=== PATIENT | female | born 1975 | race Caucasian/White ===

== ENCOUNTER 2016-12-03 17:50 | Emergency (ER) | payer OTHER ==
[~2016-12-03] VITALS: Ht 142.2 cm; Wt 54.5 kg
[~2016-12-03 17:50] MED LIST: AUGM875T PO; IBUP-238 PO; IBUP800 PO; METR-1 PO
[2016-12-03 17:52] VITALS: BP 162/82; PULSE 88; RESP 16; TEMP 98.2; O2SAT 99
--- NOTE | 2016-12-03 17:59 | PD ---
HPI . Left foot pain and right knee abrasion since noon Chief Complaint: Fall Time Seen by Provider: 17:59 Travel History International Travel<30 days: No Contact w/Intl Traveler<30days: No Traveled to known affect area: No History of Present Illness HPI 41-year-old female here with complaints of left foot pain and right knee abrasion since noon today. Patient was at [facility] when she was walking and accidentally twisted her ankle. She twisted awkwardly and somehow hurt her left foot and also sustained an abrasion to her right knee. She is now complaining of left foot pain on the lateral side. Pain is rated as 6/10 without any radiation. She tells me that this seems to be some tight sensation in the foot. She also complains of a right knee abrasion. She is up-to-date on her tetanus vaccine. She has no other complaints. She denies head injury or loss of consciousness. PFSH Past Medical History ?: Not LMP: 11/2016 Social History Alcohol Use: No Tobacco Use: No Substance Use: No Allergies-Medications (Allergen,Severity, Reaction): Coded Allergies: No Known Allergies (Unverified , 12/03/16) Reported Meds & Prescriptions Reported Meds & Active Scripts Active Ibuprofen 800 Mg Tab 800 Mg PO TID Review of Systems General / Constitutional: No: Fever Eyes: No: Visual changes HENT: No: Headaches Cardiovascular: No: Chest Pain or Discomfort Respiratory: No: Shortness of Breath Gastrointestinal: No: Abdominal Pain Genitourinary: No: Dysuria Musculoskeletal: Positive: Pain (left lateral foot) Skin: Positive Other (R knee abrasion ), No Rash Neurologic: No: Weakness Psychiatric: No: Depression Endocrine: No: Polydipsia Hematologic/Lymphatic: No: Easy Bruising Physical Exam Narrative GENERAL: AAO x 3, no acute distress, Well-nourished, well-developed patient. SKIN: Warm and dry. No visible rashes or bruising. HEAD: Normocephalic and atraumatic. EYES: No scleral icterus. No injection or drainage. ENT: No nasal drainage noted. Airway patent. NECK: Supple, trachea midline. No JVD. CARDIOVASCULAR: Regular rate and rhythm without murmurs, gallops, or rubs. RESPIRATORY: Breath sounds equal bilaterally. No accessory muscle use. No rhonchi or rales. GASTROINTESTINAL: Visual inspection normal EXTREMITIES: No cyanosis. left lateral foot with edema, tender to touch and decreased ROM due to pain.Toes move normally. pulses intact. BACK: Nontender without obvious deformity. No CVA tenderness. PSYCH: AAO x 3, normal affect. Data Data Last Documented VS Vital Signs Date Time Temp Pulse Resp B/P Pulse Ox O2 Delivery O2 Flow Rate FiO2 12/03/16 18:12 Room Air 12/03/16 17:52 98.2 88 16 162/82 99 Orders Foot, Complete ([id number]) (12/03/16 18:03) Shoe Post Op (12/03/16 ) [facility] Medical Decision Making Medical Screen Exam Complete: Yes Emergency Medical Condition: Yes Medical Record Reviewed: Yes Differential Diagnosis foot sprain, foot fracture, tendon injury Narrative Course 41-year-old female here with complaints of left foot pain and right knee abrasion since noon today. Patient was at [facility] when she was walking and accidentally twisted her ankle. She twisted awkwardly and somehow hurt her left foot and also sustained an abrasion to her right knee. She is now complaining of left foot pain on the lateral side. Pain is rated as 6/10 without any radiation. She tells me that this seems to be some tight sensation in the foot. She also complains of a right knee abrasion. She is up-to-date on her tetanus vaccine. She has no other complaints. She denies head injury or loss of consciousness. Patient seen and examined. She appears to have a foot sprain. I will go ahead and check an x-ray to rule out any type of bony abnormality. Her pain is tolerable at this point and she recently took two ibuprofen. Xray: tiny fracture of the base of lateral cuboid discussed with patient post op shoe and follow up with podiatry Abrasion was cleaned off and dressed appropriately. Patient verbalized understanding of instructions, questions were answered, and thanked me for their care. I advised them if their condition worsens, please return to the nearest emergency room for further care. Diagnosis Primary Impression: Foot fracture, left Qualified Code: S92.902A - Foot fracture, left, closed, initial encounter Referrals: [facility] Patient Instructions: General Instructions Additional Instructions: Rest the affected area as much as possible. Ice this area for 15-20 minutes at a time. You can do this every hour or as much as tolerated. Elevate this area. Use ibuprofen as needed for pain and inflammation. Please return to emergency department if your symptoms return or worsen. Follow up with your primary care provider. Take medications as prescribed. Please follow up with podiatry. You may need to see your primary care provider first. Med/Other Pt SpecificInfo: Prescription(s) given Scripts Ibuprofen 800 Mg Tmc607 Mg PO TID #21 TAB Prov:Kike Sullivan MD 12/03/16 Disposition: 01 DISCHARGE HOME Condition: Stable Ama Torres December 03, 2016 17:59
--- NOTE | 2016-12-03 18:30 | RADRPT ---
EXAM DATE/TIME: 12/03/2016 18:21 [place] COMPARISON: No previous studies available for comparison. INDICATIONS : Left foot pain after fall in parking lot today. MEDICAL HISTORY : None. SURGICAL HISTORY : None. ENCOUNTER: Initial ACUITY: 1 day PAIN SCORE: 10/10 LOCATION: Left lateral foot. FINDINGS: First a tiny ossific fragment adjacent to the proximal aspect of the cuboid at the calcaneocuboid asiya nt level. This could be a small chip or avulsion injury. The bony elements appear otherwise intact. M ineralization is normal. No significant articular abnormalities are evident. CONCLUSION: Tiny fracture involving the base of the lateral cuboid Luis Eduardo Horowitz MD on December 03, 2016 at 18:27 Board Certified Radiologist. This report was verified electronically.
[2016-12-03] MEDS ORDERED: IBUP800T23 PO (18:49)
== END 2016-12-03 19:46 | disposition home or self-care (01) ==
LOC: NEPK 17:50
DX: S92.215A Nondisplaced fracture of cuboid bone of left foot, initial encounter for closed fracture (principal); S80.211A Abrasion, right knee, initial encounter; X50.1XXA Overexertion from prolonged static or awkward postures, initial encounter; Y93.01 Activity, walking, marching and hiking; Y92.214 College as the place of occurrence of the external cause; Y99.8 Other external cause status
CPT/HCPCS: 73630; 99283; L3260

== ENCOUNTER 2017-09-30 07:06 | Observation (INO) | payer OTHER ==
[~2017-09-30] VITALS: Ht 142.2 cm; Wt 50.2 kg
[2017-09-30] MEDS ORDERED: SODIUM CHLORID 0.9% 500 ML IV PRN (07:45)
[2017-09-30] MEDS ORDERED: LACTATED RINGER'S 1000 ML IV PRN (07:45)
[2017-09-30] MEDS ORDERED: CHLORHEXIDINE GLUCONATE 2 % 1 PACK (2 CLOTHS) TOPICAL PRN (07:45)
[2017-09-30] MEDS ORDERED: ceFAZolin 2 GM PREMIX 50 ML IV SCH (07:45)
[2017-09-30] MEDS ORDERED: METOPROLOL TARTRATE 25 MG TAB PO PRN (07:45)
[2017-09-30] MEDS ORDERED: POVIDONE IODINE 5% (ANTISEPSIS KIT) 4 APPLICATIONS EACH NARE PRN (07:45)
[2017-09-30 08:18] LABS: AUTOMATED NEUTROPHIL # 4.6 TH/MM3 (1.8-7.7); BASOPHIL % 0.3 % (0.0-2.0); EOSINOPHIL # 0.1 TH/MM3 (0-0.4); EOSINOPHIL % 2.1 % (0.0-4.0); HEMATOCRIT 38.8 % (35.0-46.0); HEMOGLOBIN 13.4 GM/DL (11.6-15.3); LYMPH % 19.3 % (9.0-44.0); LYMPHOCYTE # 1.3 TH/MM3 (1.0-4.8); MEAN CELL VOLUME 92.4 FL (80.0-100.0); MEAN CORPUSCULAR HGB CONC 34.6 % (32.0-36.0); MEAN PLATELET VOLUME 8.6 FL (7.0-11.0); MONO % 7.5 % (0.0-8.0); MONOCYTE # 0.5 TH/MM3 (0-0.9); NEUT % 70.8 % (16.0-70.0); PLATELET COUNT 267 TH/MM3 (150-450); RED CELL DISTRIBUTION WIDTH 13.5 % (11.6-17.2); WHITE BLOOD COUNT 6.5 TH/MM3 (4.0-11.0)
[2017-09-30] MEDS ORDERED: ORSYTAB PO (08:18)
[2017-09-30] MEDS ORDERED: APREPITANT 40 MG CAP ONE (08:22)
[2017-09-30] MEDS ORDERED: FAMOTIDINE 20 MG/2 ML VIAL ONE (08:22)
[2017-09-30] MEDS ORDERED: BUPIVACAINE/EPINEPHRINE 0.5% PF 30 ML VIAL ONE (09:37)
[2017-09-30] MEDS ORDERED: ROCURONIUM INJ 50 MG/5 ML SYRINGE IV PUSH ONE (12:00)
[2017-09-30] MEDS ORDERED: diphenhydrAMINE HCL 25 MG CAP PO PRN (12:00)
[2017-09-30] MEDS ORDERED: PROMETHAZINE HCL 25 MG TAB PO PRN (12:00)
[2017-09-30] MEDS ORDERED: NALOXONE HCL 0.4 MG/ML AMP IV PUSH PRN (12:00)
[2017-09-30] MEDS ORDERED: IBUPROFEN 600 MG TAB PO PRN (12:00)
[2017-09-30] MEDS ORDERED: ONDANSETRON ODT 4 MG TAB PO PRN (12:00)
[2017-09-30] MEDS ORDERED: SODIUM CHLORIDE 0.9% FLUSH 10 ML FLUSH IV FLUSH PRN (12:00)
[2017-09-30] MEDS ORDERED: PHENYLEPH/NS 1000 MCG/10 ML SYR IV ONE (12:00)
[2017-09-30] MEDS ORDERED: DEXAMETHASONE SOD PHOS 4 MG/ML VIAL IV ONE (12:00)
[2017-09-30] MEDS ORDERED: NEOSTIGMINE 5 MG/5 ML SYRINGE IV PUSH ONE (12:00)
[2017-09-30] MEDS ORDERED: PROPOFOL 200 MG/20 ML AMP IV ONE (12:00)
[2017-09-30] MEDS ORDERED: KETOROLAC TROMETHAMINE 30 MG/ML (IVP) VIAL IVP PRN (12:00)
[2017-09-30] MEDS ORDERED: MORPHINE SULFATE 30 MG/30 ML PCA IV SCH (12:00)
[2017-09-30] MEDS ORDERED: ZOLPIDEM TARTRATE 5 MG TAB PO PRN (12:00)
[2017-09-30] MEDS ORDERED: ONDANSETRON HCL 4 MG/2 ML VIAL IVP PRN (12:00)
[2017-09-30] MEDS ORDERED: ONDANSETRON HCL 4 MG/2 ML VIAL IV ONE (12:00)
[2017-09-30] MEDS ORDERED: KETOROLAC TROMETHAMINE 30 MG/ML (IVP) VIAL IV PUSH ONE (12:00)
[2017-09-30] MEDS ORDERED: GLYCOPYRROLATE 1 MG/5 ML SYRINGE IV PUSH ONE (12:00)
[2017-09-30] MEDS ORDERED: LACTATED RINGER'S 1000 ML INJ 1,000 ML IV ONE (12:00)
[2017-09-30] MEDS ORDERED: DO NOT ADM ANY ANTICOAGULANT DRUGS PRN (12:03)
--- NOTE | 2017-09-30 12:06 | PD.OP ---
Operative Report Date of Surgery: Sep 30, 2017 Preoperative Diagnosis: (1) Menorrhagia with regular cycle Postoperative Diagnosis: (1) Fibroids (2) Menorrhagia with regular cycle Procedure: laparoscopic supracervical hysterectomy with bilateral salpingectomies Anesthesia: GET Surgeon: Mary Lees MD Machine Operator Picker(s): WILL Murray Operation and Findings: After informed consent was obtained the patient was taken to the operating room. She was prepped and draped in normal sterile fashion for surgery in the supine position. The umbilical fold was injected with 0.25% Marcaine and with epinephrine, and a 5 millimeter skin incision was made. Then using the laparoscope and a 5 millimeter trocar, pneumoperitoneum is obtained after direct entry into the abdomen has been visualized. Two secondary trocar sites, there was a 5mm trocar placed in the right lower quadrant and a 5 millimeter trocar that was placed in the left lower quadrant after being injected with local. Laparoscopic visualization revealed normal appearing upper abdomen, normal appearing fallopian tubes and ovaries. Next, using the Harmonic device, the round ligament was identified initially on the patient's left, cauterized and then divided. The utero-ovarian ligament and fallopian tube were cauterized and then divided, and freed of their uterine attachments. The fallopian tube was amputated by cauterizing and then dividing the mesosalpinx, initially on patients left then on the patient's right side. Next a bladder flap was developed using the Harmonic device as well. The same procedure was then carried out on the patient's right side with good hemostatic result. Successive bites were taken until the uterine artery had been reached, cauterized and divided. Once this was done on the right side, the same procedure was carried out on the left side. Once this was done, we then used the Harmonic scalpel with a drilling-in technique and the uterus was amputated. A minilaparotomy was made, the uterus and bilateral tubes were removed and sent off to pathology for further identification. The fascia was reapproximated with 0 vicryl suture and the skin was reapproximated with 4-0 monocryl suture. The pelvis was copiously irrigated and noted to be hemostatic. The cervical os was cauterized using the Harmonic scalpel. All pedicles were noted to be dry. The abdomen was then deflated. The trocar sites were closed using 4-0 Monocryl suture in a subcuticular fashion. The patient was awakened and then extubated, and then taken to the recovery room in stable condition. Mary Lees MD Sep 30, 2017 12:06
[2017-09-30] MEDS ORDERED: MIDAZOLAM HCL 2 MG/2 ML VIAL ONE (12:07)
[2017-09-30] MEDS ORDERED: *ONDANSETRON 4 MG VIAL PERIprocedural Use ONLY ONE (12:45)
[2017-09-30] MEDS ORDERED: DEXT 5%-NACL 0.45% 1000 ML INJ 1,000 ML IV SCH (13:00)
[2017-09-30] MEDS ORDERED: ACETAMINOPHEN/HYDROcodone 325 MG/5 MG TAB PO PRN (13:00)
[2017-09-30 13:20] VITALS: BP 110/69; PULSE 68; RESP 18; TEMP 98; O2SAT 98
--- NOTE | 2017-09-30 14:07 | MH ---
cc: Mary Lees MD DATE OF ADMISSION: 09/29/2017 HISTORY OF PRESENT ILLNESS: The patient is a 42-year-old gravid 0, who presents with a history of heavy menstrual cycles, who desires operative intervention. The patient has been trying OCPs since May and desires permanent intervention at this point. PAST MEDICAL HISTORY: Significant for headaches. PAST SURGICAL HISTORY: Basal cell cancer removal from her arm, bilateral breast augmentation, tonsillectomy and adenoidectomy. OBSTETRIC HISTORY: Negative. GYNECOLOGIC HISTORY: Her menarche was at age 12. Her cycles have been regular. They normally last 4 or 5 days and have been heavy since approximately March. She denies any STDs or abnormal Pap smears. SOCIAL HISTORY: Negative for cigarettes, alcohol or street drugs. The patient is single and works as a dialysis nurse at [employer]. MEDICATIONS: AVIANE ALLERGIES: CODEINE AND PSEUDOEPHEDRINE. PHYSICAL EXAMINATION: VITAL SIGNS: Her height is 4 feet 8 inches, her weight is 111 pound. Her blood pressure is 100/60. GENERAL: She is in no acute distress. CARDIOVASCULAR: Her heart has regular rate and rhythm. PULMONARY: Her lungs are clear to auscultation bilaterally. ABDOMEN: Soft, nontender, nondistended. LOWER EXTREMITIES: Nontender, nonedematous. IMPRESSION: Menorrhagia. PLAN: Laparoscopic suprasellar hysterectomy, bilateral salpingectomies. Risks, benefits and alternatives have been reviewed. The patient does desire to proceed. Mary Lees MD [facility]/ , 10:35 PM , 10:57 PM [facility]ITAL[facility]
[2017-09-30] MEDS: DOCUSATE SODIUM 100 MG CAP PO SCH (14:37)
[2017-09-30] MEDS: ACETAMINOPHEN 1000 MG/100 ML 100 ML IV SCH ×2 (14:42→19:48)
[2017-09-30] MEDS: PCA - TOTAL MG MORPHINE DELIVERED PER SHIFT SCH ×2 (14:44→22:00)
[2017-09-30] MEDS ORDERED: PROMETHAZINE INJ 25 MG/ML VIAL IM PRN (14:45)
[2017-09-30 15:57] VITALS: BP 90/53; PULSE 70; RESP 12; TEMP 98.2; O2SAT 98
[2017-09-30] MEDS ORDERED: ONDANSETRON INJ 8 MG in DEXTROSE 5% IN WATER INJ 50 ML IV PRN ×2 (16:30)
[2017-09-30 18:08] VITALS: BP 103/56
[2017-09-30 19:30] VITALS: BP 104/64; PULSE 89; RESP 18; TEMP 98.8
[2017-09-30] MEDS ORDERED: SODIUM CHLORIDE 0.9% FLUSH 10 ML FLUSH IV FLUSH SCH (21:00)
[2017-10-01] MEDS: DOCUSATE SODIUM 100 MG CAP PO SCH ×2 (02:02→13:43)
[2017-10-01] MEDS: ACETAMINOPHEN 1000 MG/100 ML 100 ML IV SCH (02:02)
[2017-10-01 02:10] VITALS: BP 95/58; PULSE 98; RESP 18; TEMP 97.5
[2017-10-01] MEDS: PCA - TOTAL MG MORPHINE DELIVERED PER SHIFT SCH (06:00)
[2017-10-01 06:02] LABS: AUTOMATED NEUTROPHIL # 11.8 TH/MM3 (1.8-7.7); BASOPHIL % 0.1 % (0.0-2.0); HEMATOCRIT 35.6 % (35.0-46.0); HEMOGLOBIN 11.9 GM/DL (11.6-15.3); LYMPH % 7.2 % (9.0-44.0); MEAN CELL VOLUME 93.8 FL (80.0-100.0); MEAN CORPUSCULAR HEMOGLOBIN 31.4 PG (27.0-34.0); MEAN CORPUSCULAR HGB CONC 33.5 % (32.0-36.0); MEAN PLATELET VOLUME 8.3 FL (7.0-11.0); MONO % 6.3 % (0.0-8.0); MONOCYTE # 0.9 TH/MM3 (0-0.9); NEUT % 86.4 % (16.0-70.0); PLATELET COUNT 246 TH/MM3 (150-450); RED BLOOD COUNT 3.79 MIL/MM3 (4.00-5.30); RED CELL DISTRIBUTION WIDTH 13.1 % (11.6-17.2); WHITE BLOOD COUNT 13.6 TH/MM3 (4.0-11.0)
[2017-10-01 06:29] LABS: BICARBONATE 24.6 MEQ/L (21.0-32.0); CALCIUM 7.6 MG/DL (8.5-10.1); CREATININE 0.81 MG/DL (0.50-1.00)
[2017-10-01 08:00] VITALS: BP 88/56; PULSE 71; RESP 14; TEMP 97.9; O2SAT 99
[2017-10-01] MEDS ORDERED: NORC5TAB PO (09:23)
[2017-10-01] MEDS ORDERED: IBUP-232 PO (09:23)
[2017-10-01 14:00] VITALS: BP 107/64; PULSE 89; RESP 16
--- NOTE | 2017-10-01 23:19 | HHI.PR ---
Subjective Remarks Doing well, pain is well controlled, heaton with yellow urine, zackery po. Objective Vital Signs Vital Signs Date Time Temp Pulse Resp B/P (MAP) Pulse Ox O2 Delivery O2 Flow Rate FiO2 10/01/17 14:00 89 16 107/64 (78) 10/01/17 08:00 97.9 71 14 88/56 (67) 99 10/01/17 06:00 18 10/01/17 02:10 97.5 98 18 95/58 (70) I/O 10/01/17 10/01/17 10/01/17 10/02/17 10/02/17 10/02/17 07:00 15:00 23:00 07:00 15:00 23:00 Output Total 2300 ml 750 ml Balance -2300 ml -750 ml Output Urine Total 2300 ml 750 ml Result Diagram: 10/01/17 0525 10/01/17 0525 Objective Remarks PULM- CTA b/l CV-regular rate and rhythm. Abdomen is soft and non-distended. Incisions is clean and dry. Ext no CCE. A/P Assessment and Plan Post Op Day 1 Doing well d/c heaton Home today after void and return to office in two weeks. Mary Lees MD Oct 01, 2017 23:19
--- NOTE | 2017-10-01 23:20 | HHI.DCPOC ---
Discharge Care Plan Diagnosis: (1) Fibroids (2) Menorrhagia with regular cycle Your Health Problems Are: Vaginal bleeding Report Symptoms to Your Doctor -Temperature above 100.5 degrees -Redness, of incision or excessive or foul smelling drainage -Unusual pain or calf pain -Increased vaginal bleeding -Painful or difficulty urinating -Feelings of extreme sadness or anxiety after 2 weeks Goals to Promote Your Health * To prevent worsening of your condition and complications * To maintain your health at the optimal level Directions to Meet Your Goals Take your medications as prescribed Follow your dietary instruction Follow activity as directed Ensure plenty of rest for recovery Drink fluids for hydration Keep your appointments as scheduled Take your immunizations and boosters as scheduled If your symptoms worsen call your PCP, if no PCP go to Urgent Care Center or Emergency Room Smoking is Dangerous to Your Health. Avoid second hand smoke Call the 24-hour crisis hotline for domestic abuse at Mary Lees MD Oct 01, 2017 23:20
== END 2017-10-01 15:38 | disposition home or self-care (01) ==
LOC: HSDC 07:06 → HSDI 11:56 → H1EA 13:01
PROVIDERS: ADMIT Obstetrics & Gynecology; ATTEND Obstetrics & Gynecology
DX: D25.9 Leiomyoma of uterus, unspecified (principal); N92.0 Excessive and frequent menstruation with regular cycle; Z85.828 Personal history of other malignant neoplasm of skin
CPT/HCPCS: 00840; 58542; 80048; 84702; 85025; 86850; 86900; 86901; 88307; 96361; 96365; 96366; 96375; G0378; J0131; J0690; J1100; J1885; J2250; J2270; J2370; J2405; J2550; J2710; J3010; J7120; J8501